=== PATIENT | female | born 1975 | race Caucasian/White ===

== ENCOUNTER 2024-02-08 16:12 | Inpatient (IN) | payer OTHER ==
[~2024-02-08] VITALS: Ht 157.5 cm; Wt 95.3 kg
[2024-02-08 16:35] VITALS: BP 133/91; PULSE 102; RESP 19; TEMP 97.3; O2SAT 100
[2024-02-08 19:14] LABS: BASOPHILS % (AUTO) 0.6 % (0.0-2.0); EOSINOPHILS # (AUTO) 0.1 K/uL (0-0.4); EOSINOPHILS % (AUTO) 1.2 % (0.0-4.0); HEMATOCRIT 42.3 % (36-48); HEMOGLOBIN 14.6 g/dL (12.0-16.0); LYMPHOCYTES # (AUTO) 1.8 K/uL (2.5-16.5); LYMPHOCYTES % (AUTO) 22.9 % (20.5-51.1); MEAN CORPUSCULAR HEMOGLOBIN 33 pg (27-31); MEAN CORPUSCULAR HGB CONC 35 g/dL (33-37); MEAN CORPUSCULAR VOLUME 96.4 fL (80-94); MONOCYTES # (AUTO) 0.5 K/uL (0.8-1.0); MONOCYTES % (AUTO) 6.1 % (1.7-9.3); NEUTROPHILS # (AUTO) 5.4 K/uL (1.8-7.7); NEUTROPHILS % (AUTO) 69.2 % (42.2-75.2); PLATELET COUNT (AUTO) 153 K/uL (140-450); RED BLOOD CELL COUNT(AUTO) 4.38 MIL/uL (4.20-5.40); RED CELL DISTRIBUTION WIDTH 13.3 % (11.6-13.7); WHITE BLOOD COUNT (AUTO) 7.8 K/uL (4.8-10.8)
[2024-02-08 19:24] LABS: ANION GAP 12.8 (8-16); CALCIUM 8.2 mg/dL (8.5-10.1); CARBON DIOXIDE 28.9 mmol/L (21-32); CREATININE 0.8 mg/dL (0.6-1.3); POTASSIUM 3.7 mmol/L (3.5-5.1)
[2024-02-08 19:39] LABS: ALANINE AMINOTRANSFERASE 10 U/L (12-78); ALBUMIN 3.2 g/dL (3.4-5.0); ALKALINE PHOSPHATASE 96 U/L (50-136); ASPARTATE AMINOTRANSFERASE 14 U/L (15-37); BILIRUBIN,DIRECT 0.1 mg/dL (0.0-0.3); CREATINE KINASE, TOTAL 54 U/L (26-192); FREE T4 (FREE THYROXINE) 0.54 ng/dL (0.76-1.46); LIPASE 35 U/L (16-77); THYROID STIMULATING HORMONE 2.91 uIU/mL (0.34-3.74); TOTAL BILIRUBIN 0.4 mg/dL (0.0-1.0); TOTAL PROTEIN, SERUM 8.7 g/dL (6.4-8.2)
[2024-02-08] MEDS: NACL 0.9% 1,000 ML IV ONE (20:40)
[2024-02-08] MEDS: NACL 0.9% 1,000 ML IV SCH (20:50)
[2024-02-08] MEDS ORDERED: FLUO40CA6 PO (23:52)
[2024-02-08] MEDS ORDERED: BRIV50TA PO (23:52)
[2024-02-08] MEDS ORDERED: OLAN1TAB3 PO (23:52)
[2024-02-08] MEDS ORDERED: BREX1TAB PO (23:52)
[2024-02-08] MEDS ORDERED: LACO100T PO (23:52)
[2024-02-08] MEDS ORDERED: OXCA300T PO (23:52)
[2024-02-08] MEDS ORDERED: DIVA500T1 PO (23:52)
[2024-02-09 07:37] LABS: ANION GAP 9.5 (8-16); CALCIUM 8.1 mg/dL (8.5-10.1); CARBON DIOXIDE 29.5 mmol/L (21-32); CREATININE 0.7 mg/dL (0.6-1.3)
[2024-02-09 07:38] LABS: BASOPHILS % (AUTO) 0.5 % (0.0-2.0); EOSINOPHILS # (AUTO) 0.1 K/uL (0-0.4); EOSINOPHILS % (AUTO) 1.8 % (0.0-4.0); HEMATOCRIT 37.3 % (36-48); HEMOGLOBIN 12.9 g/dL (12.0-16.0); LYMPHOCYTES # (AUTO) 2.6 K/uL (2.5-16.5); LYMPHOCYTES % (AUTO) 32.6 % (20.5-51.1); MEAN CORPUSCULAR HEMOGLOBIN 34 pg (27-31); MEAN CORPUSCULAR HGB CONC 35 g/dL (33-37); MEAN CORPUSCULAR VOLUME 97.2 fL (80-94); MONOCYTES # (AUTO) 1.3 K/uL (0.8-1.0); MONOCYTES % (AUTO) 16.2 % (1.7-9.3); NEUTROPHILS # (AUTO) 3.8 K/uL (1.8-7.7); NEUTROPHILS % (AUTO) 48.9 % (42.2-75.2); PLATELET COUNT (AUTO) 115 K/uL (140-450); RED BLOOD CELL COUNT(AUTO) 3.84 MIL/uL (4.20-5.40); RED CELL DISTRIBUTION WIDTH 13.2 % (11.6-13.7); WHITE BLOOD COUNT (AUTO) 7.9 K/uL (4.8-10.8)
[2024-02-09 08:50] VITALS: BP 142/80; PULSE 67; RESP 20; TEMP 97.3; O2SAT 100
[2024-02-09 09:00] VITALS: PULSE 67; RESP 20; O2SAT 100
[2024-02-09 12:11] LABS: APPEARANCE,URINE CLEAR (CLEAR); BILIRUBIN,URINE 1+ (NEGATIVE); BLOOD, URINE NEGATIVE (NEGATIVE); COLOR,URINE ORANGE (YELLOW); LEUKOCYTE ESTERASE ,URINE NEGATIVE (NEGATIVE); NITRITE, URINE NEGATIVE (NEGATIVE); PROTEIN,URINE NEGATIVE (NEGATIVE); UGLUCOSE NEGATIVE (NEGATIVE)
[2024-02-09 12:17] LABS: ICTOTEST NEGATIVE (NEGATIVE)
[2024-02-09] MEDS ORDERED: HYDROcodone/APAP 7.5/325 MG 1 TAB PO PRN (15:10)
[2024-02-09] MEDS ORDERED: MECLIZINE 25 MG TAB PO PRN (15:10)
[2024-02-09] MEDS ORDERED: ONDANSETRON 4 MG/2 ML VIAL IVP PRN (15:10)
[2024-02-09] MEDS ORDERED: ACETAMINOPHEN 325 MG TAB PO PRN (15:10)
[2024-02-09 16:00] VITALS: BP 112/67; PULSE 73; RESP 18; TEMP 97.1; O2SAT 100
[2024-02-09 16:14] LABS: INR 1.58 (0.8-1.2); PARTIAL THROMBOPLASTIN TIME 24.7 secs (22-35.6); PROTHROMBIN TIME 16.3 secs (10.8-13.4)
[2024-02-09 16:22] LABS: AMPHETAMINE, URINE NEGATIVE ng/ml (NEG <=1000); BARBITURATE, URINE NEGATIVE ng/ml (NEG <=200); BENZODIAZEPINE, URINE POSITIVE ng/mL (NEG <=200); CANNABINOID, URINE NEGATIVE ng/mL (NEG <=50); COCAINE, URINE NEGATIVE ng/mL (NEG <=300); OPIATE, URINE NEGATIVE ng/mL (NEG <=2000); PHENCYCLIDINE SCREEN,URINE NEGATIVE ng/mL (NEG <=25)
[2024-02-09 16:39] LABS: CHOL/HDL RATIO 3.3 (1-4.5); FREE T4 (FREE THYROXINE) 0.53 ng/dL (0.76-1.46); THYROID STIMULATING HORMONE 1.87 uIU/mL (0.34-3.74)
[2024-02-09 16:47] LABS: LACTIC ACID 1.2 mmol/L (0.4-2.0)
[2024-02-09 20:00] VITALS: PULSE 77; RESP 18; O2SAT 95
[2024-02-09] MEDS ORDERED: BRIVARACETAM PO SCH (21:00)
[2024-02-09] MEDS: DOCUSATE SODIUM 100 MG GELCAP PO SCH (21:46)
[2024-02-09] MEDS: OXcarbazepine 150 MG TAB PO SCH (21:47)
[2024-02-09] MEDS: LACOSAMIDE 100 MG TAB PO SCH (21:47)
[2024-02-10 04:00] VITALS: BP 126/89; PULSE 77; RESP 18; TEMP 98.1; O2SAT 98
[2024-02-10 06:56] LABS: BASOPHILS % (AUTO) 0.5 % (0.0-2.0); EOSINOPHILS # (AUTO) 0.1 K/uL (0-0.4); EOSINOPHILS % (AUTO) 1.9 % (0.0-4.0); HEMATOCRIT 34.6 % (36-48); HEMOGLOBIN 12.1 g/dL (12.0-16.0); LYMPHOCYTES # (AUTO) 1.9 K/uL (2.5-16.5); LYMPHOCYTES % (AUTO) 29.4 % (20.5-51.1); MEAN CORPUSCULAR HEMOGLOBIN 34 pg (27-31); MEAN CORPUSCULAR HGB CONC 35 g/dL (33-37); MEAN CORPUSCULAR VOLUME 96.8 fL (80-94); MONOCYTES # (AUTO) 0.6 K/uL (0.8-1.0); MONOCYTES % (AUTO) 8.8 % (1.7-9.3); NEUTROPHILS # (AUTO) 3.8 K/uL (1.8-7.7); NEUTROPHILS % (AUTO) 59.4 % (42.2-75.2); PLATELET COUNT (AUTO) 130 K/uL (140-450); RED BLOOD CELL COUNT(AUTO) 3.58 MIL/uL (4.20-5.40); RED CELL DISTRIBUTION WIDTH 13.1 % (11.6-13.7); WHITE BLOOD COUNT (AUTO) 6.5 K/uL (4.8-10.8)
[2024-02-10 07:46] LABS: ANION GAP 9.8 (8-16); CALCIUM 8.5 mg/dL (8.5-10.1); CARBON DIOXIDE 28.8 mmol/L (21-32); CREATININE 0.7 mg/dL (0.6-1.3); POTASSIUM 3.6 mmol/L (3.5-5.1)
[2024-02-10 07:55] LABS: MAGNESIUM 2.2 mg/dL (1.8-2.4); PHOSPHORUS 3.3 mg/dL (2.5-4.9)
[2024-02-10 08:00] VITALS: BP 116/62; PULSE 76; PULSE 77; RESP 16; RESP 18; O2SAT 99
[2024-02-10] MEDS ORDERED: OLANZAPINE PO SCH (09:00)
[2024-02-10] MEDS ORDERED: BREXPIPRAZOLE PO SCH (09:00)
[2024-02-10] MEDS ORDERED: SAMIDORPHAN MALATE PO SCH (09:00)
[2024-02-10] MEDS: DIVALPROEX 500 MG TABER PO SCH (09:26)
[2024-02-10] MEDS: FLUoxetine 20 MG CAP PO SCH (09:27)
[2024-02-10] MEDS: PANTOPRAZOLE 40 MG INJ VIAL IVP SCH (09:32)
[2024-02-10 16:00] VITALS: BP 102/56; PULSE 74; RESP 18; TEMP 97.4; O2SAT 98
[2024-02-10 20:00] VITALS: BP 99/52; PULSE 74; RESP 14; RESP 18; TEMP 98; O2SAT 96; O2SAT 98
[2024-02-11 04:00] VITALS: BP 108/45; PULSE 73; RESP 18; TEMP 98.3; O2SAT 98
[2024-02-11 07:14] LABS: ANION GAP 6.5 (8-16); CALCIUM 7.8 mg/dL (8.5-10.1); CARBON DIOXIDE 30.8 mmol/L (21-32); CREATININE 0.7 mg/dL (0.6-1.3); POTASSIUM 3.3 mmol/L (3.5-5.1)
[2024-02-11 07:38] LABS: BASOPHILS % (AUTO) 0.3 % (0.0-2.0); EOSINOPHILS # (AUTO) 0.2 K/uL (0-0.4); HEMATOCRIT 31.6 % (36-48); LYMPHOCYTES # (AUTO) 3.2 K/uL (2.5-16.5); LYMPHOCYTES % (AUTO) 48.1 % (20.5-51.1); MEAN CORPUSCULAR HEMOGLOBIN 34 pg (27-31); MEAN CORPUSCULAR HGB CONC 35 g/dL (33-37); MEAN CORPUSCULAR VOLUME 96.9 fL (80-94); MONOCYTES # (AUTO) 0.5 K/uL (0.8-1.0); MONOCYTES % (AUTO) 7.4 % (1.7-9.3); NEUTROPHILS # (AUTO) 2.7 K/uL (1.8-7.7); NEUTROPHILS % (AUTO) 41.2 % (42.2-75.2); PLATELET COUNT (AUTO) 120 K/uL (140-450); RED BLOOD CELL COUNT(AUTO) 3.25 MIL/uL (4.20-5.40); RED CELL DISTRIBUTION WIDTH 13.2 % (11.6-13.7); WHITE BLOOD COUNT (AUTO) 6.5 K/uL (4.8-10.8)
[2024-02-11 07:50] LABS: MAGNESIUM 1.8 mg/dL (1.8-2.4); PHOSPHORUS 3.7 mg/dL (2.5-4.9)
[2024-02-11 07:56] VITALS: PULSE 78; RESP 18; O2SAT 99
[2024-02-11 08:00] VITALS: BP 123/54; PULSE 68; RESP 20; TEMP 97.1; O2SAT 98
[2024-02-11] MEDS: KCL 20 MEQ IN 100 mL PREMIX 200 ML IV PRN (14:03)
[2024-02-11] MEDS ORDERED: DOCU-299 PO (15:22)
[2024-02-11 16:00] VITALS: BP 115/75; PULSE 67; RESP 19; TEMP 98; O2SAT 98
== END 2024-02-11 19:20 | DRG 640 ==
LOC: MED 16:12 → EDBD 16:12 → MTU 20:54
DX: E86.0 Dehydration (principal); G93.41 Metabolic encephalopathy; E44.1 Mild protein-calorie malnutrition; F32.9 Major depressive disorder, single episode, unspecified; Z79.899 Other long term (current) drug therapy; Z68.38 Body mass index [BMI] 38.0-38.9, adult
CPT/HCPCS: 36415; 70450; 71045; 80048; 80076; 80305; 81003; 82140; 82150; 82550; 83036; 83605; 83690; 83735; 83880; 84100; 84439; 84443; 84484; 85025; 85610; 85730; 87040; 87081; 87086; 93005; 93880; 97110; 97112; 97163-GP; 97530; 99285; C9113; J3480; Q0092

== ENCOUNTER 2024-06-09 22:16 | Emergency (ER) | payer OTHER ==
[~2024-06-09] VITALS: Ht 165.1 cm; Wt 61.2 kg
[~2024-06-09 22:16] MED LIST: BREX1TAB PO; BRIV50TA PO; DIVA500T1 PO; DOCU-299 PO; FLUO40CA6 PO; LACO100T PO; OLAN1TAB3 PO; OXCA300T PO
[2024-06-09 22:27] VITALS: BP 140/82; PULSE 80; RESP 16; TEMP 97.4; O2SAT 98
[2024-06-10 00:54] LABS: BASOPHILS % (AUTO) 0.2 % (0.0-2.0); EOSINOPHILS % (AUTO) 0.1 % (0.0-4.0); HEMATOCRIT 41.1 % (36-48); HEMOGLOBIN 14.3 g/dL (12.0-16.0); LYMPHOCYTES # (AUTO) 1.7 K/uL (2.5-16.5); LYMPHOCYTES % (AUTO) 23.8 % (20.5-51.1); MEAN CORPUSCULAR HEMOGLOBIN 36 pg (27-31); MEAN CORPUSCULAR HGB CONC 35 g/dL (33-37); MEAN CORPUSCULAR VOLUME 102.4 fL (80-94); MONOCYTES # (AUTO) 0.5 K/uL (0.8-1.0); MONOCYTES % (AUTO) 6.2 % (1.7-9.3); NEUTROPHILS # (AUTO) 5.1 K/uL (1.8-7.7); NEUTROPHILS % (AUTO) 69.7 % (42.2-75.2); PLATELET COUNT (AUTO) 208 K/uL (140-450); RED BLOOD CELL COUNT(AUTO) 4.01 MIL/uL (4.20-5.40); RED CELL DISTRIBUTION WIDTH 12.5 % (11.6-13.7); WHITE BLOOD COUNT (AUTO) 7.3 K/uL (4.8-10.8)
[2024-06-10 01:12] LABS: APPEARANCE,URINE CLEAR (CLEAR); BILIRUBIN,URINE 1+ (NEGATIVE); BLOOD, URINE NEGATIVE (NEGATIVE); COLOR,URINE YELLOW (YELLOW); LEUKOCYTE ESTERASE ,URINE NEGATIVE (NEGATIVE); NITRITE, URINE NEGATIVE (NEGATIVE); PROTEIN,URINE NEGATIVE (NEGATIVE); UGLUCOSE NEGATIVE (NEGATIVE)
[2024-06-10 01:14] LABS: ICTOTEST POSITIVE (NEGATIVE)
[2024-06-10 01:21] LABS: ANION GAP 11.8 (8-16); CALCIUM 8.9 mg/dL (8.5-10.1); CARBON DIOXIDE 27.6 mmol/L (21-32); CREATININE 0.7 mg/dL (0.6-1.3); POTASSIUM 3.4 mmol/L (3.5-5.1)
[2024-06-10 03:16] VITALS: O2SAT 98
[2024-06-10 08:30] VITALS: BP 125/89; PULSE 69; RESP 16; TEMP 98; O2SAT 98
== END 2024-06-10 08:30 | disposition home or self-care (01) ==
LOC: MED 22:16
DX: R56.9 Unspecified convulsions (principal); F32.A Depression, unspecified; Z86.73 Personal history of transient ischemic attack (TIA), and cerebral infarction without residual deficits; Z86.69 Personal history of other diseases of the nervous system and sense organs; Z79.899 Other long term (current) drug therapy
CPT/HCPCS: 36415; 70450; 80048; 81003; 85025; 99284